=== PATIENT | female | born 1985 | race Asian ===

== ENCOUNTER 2022-12-04 04:18 | Day surgery (SDC) | payer BC ==
[2022-12-02 16:26] VITALS: BMI 20.7
[2022-12-04 09:19] VITALS: TEMP 97.6
[2022-12-04 10:10] VITALS: BP 114/63; PULSE 72; RESP 15
== END 2022-12-04 10:00 | disposition home or self-care (01) ==
LOC: JASU-ENDO 04:18
PROVIDERS: ATTEND Student in an Organized Health Care Education/Training Program
PROC: 0DB78ZX Excision of Stomach, Pylorus, Via Natural or Artificial Opening Endoscopic, Diagnostic (ICD-10-PCS; 2022-12-04)
PROC: 0DB68ZX Excision of Stomach, Via Natural or Artificial Opening Endoscopic, Diagnostic (ICD-10-PCS; 2022-12-04)
PROC: 0DB98ZX Excision of Duodenum, Via Natural or Artificial Opening Endoscopic, Diagnostic (ICD-10-PCS; principal; 2022-12-04 09:00)
DX: K29.50 Unspecified chronic gastritis without bleeding (principal); B96.81 Helicobacter pylori [H. pylori] as the cause of diseases classified elsewhere
CPT/HCPCS: 81025; 88305-TC; 88342-TC